=== PATIENT | female | born 2000 | race Caucasian/White ===

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

== ENCOUNTER 2022-05-02 18:51 | Emergency (ER) | payer MEDICAID, SELFPAY ==
[2022-05-02 18:52] VITALS: BP 113/67; PULSE 84; RESP 16; TEMP 36.2; O2SAT 100; BMI 19.9
--- NOTE | 2022-05-02 20:32 | RAD_ITS ---
STUDY: X-RAY - RIGHT KNEE REASON FOR EXAM: Female, 22 years old. pain TECHNIQUE: 4 view(s) of the knee. COMPARISON: 03/30/2021 FINDINGS: Normal visualized distal femur. Normal visualized proximal tibia and fibula. Normal proximal tibiofibular articulation. Normal medial femorotibial compartment. Normal lateral femorotibial compartment. Normal patellofemoral articulation. The soft tissue structures are unremarkable. RAD/Knee 4 or More Views IMPRESSION: Normal x-ray examination of the knee. Electronically Signed: Chaparro Boles MD at 21:03 EST ,
--- NOTE | 2022-05-02 20:45 | EDS_ITS ---
HPI History of Present Illness Chief Complaint: Lower Extremity Injury Narrative Narrative: Patient presents with right knee pain after twisting it a week ago. She is able to ambulate but has some lower medial pain. No effusion. No other injuries. [facility] Medical History Breathing problem Home Medications NK 12/26/21 [History Last Taken Unknown] Allergy/AdvReac Type Severity Reaction Status Date / Time No Known Allergies Allergy Verified 05/02/22 18:53 Social History Smoking Status: Current every day smoker tobacco type: e-cigarettes ROS ROS ED ROS Narrative Past medical history: none Medications: Reviewed Social history: Noncontributory Review of systems: Musculoskeletal: Right knee pain Skin: No abrasions or lacerations Neurological: No weakness or paresthesias Hematologic: No easy bleeding or easy bruising EXAM Physical Exam Narrative Exam Narrative: Physical exam General: Patient does not appear in significant distress . Head: Normocephalic, Atraumatic Neck: No C-spine tenderness Cardiovascular: Normal distal pulses Back: Nontender, Normal Inspection. Extremities: Right knee has tenderness over the medial lower part of the knee. No effusion. No erythema or calor. No laxity on anterior posterior medial or lateral stressors. She has a normal extensor mechanism. She is able to ambulate with minimal gait abnormalities. Skin: No abrasions, no lacerations Neurological: Normal strength and sensation Const Vital Signs: 05/02/22 18:52 Temperature 97.1 F L Temperature Source Temporal Pulse Rate 84 Respiratory Rate 16 Blood Pressure 113/67 Blood Pressure Mean 82 Pulse Ox 100 Oxygen Delivery Method Room Air MDM MDM MDM Narrative Medical decision making narrative: Patient has a knee strain, she has abnormal x-ray as interpreted by me. I talked to her, at this time she does not meet criteria for any further imaging. She may need physical therapy I talked to her about talking to her PCP about this. I thought about prescribing Naprosyn but she can take [id number] Motrin. She does not need any bracing at this time. Radiography Diagnostic Testing: Right knee x-ray interpreted by me as normal Discharge Plan Triage Chief Complaint: Lower Extremity Injury ED Provider: Ponce Jacobo Dx/Rx/DC Orders Clinical Impression: Strain of right knee, Pain in right knee Instructions: How Your Knee Works, Treating?Strains and Sprains Prescriptions: No Action NK Primary Care Provider: Roger Cordero Referrals: Roger Cordero DO [Primary Care Provider] - 3-5 Days Disposition Disposition: Home, Self Care
[2022-05-02 21:00] VITALS: BP 116/65; PULSE 64; RESP 18; O2SAT 100
== END 2022-05-02 21:22 | disposition home or self-care (01) ==
LOC: ED 20:54
PROVIDERS: Emergency Provider Emergency Medicine; PCP Student in an Organized Health Care Education/Training Program; Visit Provider Emergency Medicine
DX: S83.91XA Sprain of unspecified site of right knee, initial encounter (principal); F17.290 Nicotine dependence, other tobacco product, uncomplicated; X50.1XXA Overexertion from prolonged static or awkward postures, initial encounter
CPT/HCPCS: 73564; 99282

== ENCOUNTER 2024-11-22 15:24 | Emergency (ER) | payer MEDICAID, SELFPAY ==
[2024-11-22 15:25] VITALS: BP 103/66; PULSE 83; RESP 15; TEMP 36.4; O2SAT 100
[2024-11-22 18:10] VITALS: BP 111/78; PULSE 74; RESP 16; O2SAT 97
--- NOTE | 2024-11-22 18:11 | EX.ED.GENINJ ---
HPI History of Present Illness Chief Complaint: Nausea/Vomiting Informant: patient Narrative Narrative: Patient is G2, P1 currently +10 weeks (follows with [facility] [employer] SUPPORT TECHNICIAN, Sarah Hawley). She is presenting with nausea and vomiting. She states she has had nausea since she found out she was however over the past 2 to 3 days has been worsening. She states she is vomiting at random times. She has prescription for Phenergan, B6 and doxylamine but is not helping. She states she sometimes has upper abdominal pain when she vomits and right afterwards but otherwise does not have pain. She denies any change in her bowel movements. She notes that today she was feeling more weak, her feet felt like they went and her skin seem to be discolored. She came in for further evaluation. She notes she has been drinking okay but she is unable to eat much food or anything that solid because and she throws up. She denies any fever or chills. She does feel lightheaded. She denies any vaginal bleeding or leakage of fluids. She has had an ultrasound through her DESKTOP SUPPORT TECHNICIAN confirming intrauterine gestation. No other complaints or concerns reported at this time. States that she was previously diagnosed with a blood sac on her liver and is worried that this could have a complication that is affecting her is affecting it. Chart review shows that she has been diagnosed with a hemangioma of her liver. [facility] Medical History Chronic anemia Concussion Anxiety Abdominal pain Liver mass Breathing problem Home Medications ?Medication ?Instructions ?Recorded ?Last Taken ?Type albuterol sulfate 90 mcg/actuation 1 inh inhalation ONCE 06/18/24 11/22/24 History aerosol inhaler ascorbic acid (vitamin C) 500 mg mg PO 06/18/24 11/22/24 History capsule ferrous sulfate 325 mg (65 mg 325 mg PO QDAY 06/18/24 11/22/24 History iron) tablet doxylamine succinate 25 mg tablet 25 mg PO QHS nausea 11/22/24 11/21/24 History (Nighttime Sleep-Aid (doxylamine)) promethazine 12.5 mg tablet 12.5 mg PO Q4H PRN PRN 11/22/24 11/22/24 History nausea/vomiting pyridoxine (vitamin B6) 50 mg 25 mg PO BID 11/22/24 11/22/24 History tablet Allergy/AdvReac Type Severity Reaction Status Date / Time No Known Allergies Allergy Verified 11/22/24 16:27 Family History Father Alcohol abuse Asthma Brother Alcohol abuse Mother Breast cancer Social History Smoking Status: Current every day smoker tobacco type: e-cigarettes alcohol intake: never substance use type: does not use ROS ROS ED Constitutional Constitutional ED: Denies chills or fever(s) Cardiovascular Cardiovascular: Denies chest pain Respiratory/Chest Respiratory/Chest: Denies cough Gastrointestinal Gastrointestinal: Reports nausea and vomiting; Denies abdominal pain or melena Genitourinary Genitourinary ED: Reports other Details: States about 10 weeks ; Denies dysuria or hematuria Musculoskeletal Musculoskeletal: Denies arthralgias or myalgias Hematologic/Lymphatic Hematologic/Lymphatic: Denies easy bleeding or easy bruising EXAM Physical Exam Const Vital Signs: 11/22/24 15:25 11/22/24 18:10 11/22/24 20:00 Temperature 97.5 F L Temperature Source Oral Pulse Rate 83 74 84 Respiratory Rate 15 16 14 Blood Pressure 103/66 111/78 115/75 Blood Pressure Mean 78 89 88 Pulse Ox 100 97 100 Oxygen Delivery Method Room Air Room Air Room Air 11/22/24 21:20 Temperature 97.8 F Temperature Source Pulse Rate 75 Respiratory Rate 16 Blood Pressure 118/62 Blood Pressure Mean 80 Pulse Ox 100 Oxygen Delivery Method Positive well nourished and well developed General Appearance ED: well developed and NAD HEENT HEENT Narrative: Moist mucosal membranes Neck Neck Narrative: Supple Chest Wall inspection of chest normal Resp normal respiratory effort and clear to auscultation bilaterally Cardio regular rhythm and no murmurs Rate: regular rate GI normal to inspection, nondistended, normoactive bowel sounds and non-tender GI Narrative: No palpable fundus Extremity normal to inspection and full ROM Neuro oriented x3 and moves all extremities Sensorium / Orientation: alert Psych mental status grossly normal and thought process normal Skin no rashes or lesions noted Skin Narrative: No pallor MDM MDM MDM Narrative Medical decision making narrative: Patient evaluated for worsening vomiting and for trimester . Has already had confirming IUP. States is not really been able to eat much but is still able to drink. Vital signs are normal. She is overall well-appearing. She reports history of liver abnormality and is concerned about her liver so we will check some basic labs including CBC, lipase and CMP as well as urinalysis to ensure he does not have a secondary UTI that could be causing her increased vomiting. Patient is given IV fluids. She currently is not nauseous so she is not giving Zofran. Initially she has significant laboratory abnormalities including worsening anemia. She does not look like she is acutely anemic on exam. Did speak to her DESKTOP SUPPORT TECHNICIAN and follow-up recent labs that show her hemoglobin is 11.5 last month on Clinisync. Spoke to her DESKTOP SUPPORT TECHNICIAN call, Dr. Guzman who does not personally familiar with her. He recommends if she is truly anemic for blood transfusion and then outpatient follow-up as it is Monday and they cannot arrange outpatient iron transfusions over the weekend/urgently. Thankfully, it was some type of lab error and labs are rechecked and more normal. Her hemoglobin is actually 9.4 with no leukocytosis. Urinalysis is consistent with contamination. Lipase and CMP normal. Patient reevaluated. She is stable. She has not had any vomiting in the emergency room. Counseled that she should be taking her doxylamine and B6 together instead of separately which is probably why is not helping. In addition she can increase her promethazine or take all 3 together. At this time she would like to try these medications as recommended and does not feel that she needs prescription for Zofran or other nausea medicine. Is offered Phenergan suppository but also declines that. Given return precautions. Encouraged follow-up with her DESKTOP SUPPORT TECHNICIAN. Discharged home in stable condition. Lab Data Attestation: I reviewed the patient's lab results. Labs: Laboratory Results - last 24 hr 11/22/24 11/22/24 11/22/24 18:24 18:38 18:38 WBC Cancelled Corrected WBC Cancelled RBC Cancelled Hgb Cancelled Hct Cancelled MCV Cancelled MCH Cancelled MCHC Cancelled RDW Std Deviation Cancelled RDW Coeff of Berk[place] Cancelled Plt Count Cancelled MPV Cancelled Immature Gran % (Auto) Cancelled Neut % (Auto) Cancelled Lymph % (Auto) Cancelled [place] % (Auto) Cancelled Eos % (Auto) Cancelled Baso % (Auto) Cancelled Absolute Neuts (auto) Cancelled Absolute Lymphs (auto) Cancelled Total Counted Cancelled Neutrophils % (Manual) Cancelled Band Neutrophils % Cancelled Lymphocytes % (Manual) Cancelled Monocytes % (Manual) Cancelled Eosinophils % (Manual) Cancelled Basophils % (Manual) Cancelled Metamyelocytes % Cancelled Myelocytes % Cancelled Promyelocytes % Cancelled Blast Cells % Cancelled Plasma Cell % (Manual) Cancelled Other Cells % Cancelled Nucleated RBC % Cancelled Nucleated RBCs/100 WBC Cancelled Differential Comment Cancelled Diff Path Review Cancelled Hypersegmented Neuts Cancelled Atypical Lymphocytes Cancelled Reactive Lymphocytes Cancelled Smudge Cells Cancelled Toxic Granulation Cancelled Toxic Vacuolation Cancelled Dohle Bodies Cancelled [place]s Cancelled Platelet Estimate Cancelled Plt Morphology Comment Cancelled RBC Morphology Cancelled Cancelled Polychromasia Cancelled Hypochromasia Cancelled Basophilic Stippling Cancelled Anisocytosis Cancelled Microcytosis Cancelled Macrocytosis Cancelled Spherocytes Cancelled Sickle Cells Cancelled Target Cells Cancelled Tear Drop Cells Cancelled Ovalocytes Cancelled Stomatocytes Cancelled [place] Bodies Cancelled [place] Cells Cancelled Bite Cells Cancelled Crenated Cell Cancelled Acanthocytes (Spur) Cancelled Rouleaux Cancelled Schistocytes Cancelled Sodium Cancelled Potassium Cancelled Chloride Cancelled Carbon Dioxide Cancelled Anion Gap Cancelled BUN Cancelled Creatinine Cancelled Estim Creat Clear Calc Cancelled Est GFR (MDRD) Non-Af Cancelled BUN/Creatinine Ratio Cancelled Glucose Cancelled Calcium Cancelled Total Bilirubin Cancelled AST Cancelled ALT Cancelled Alkaline Phosphatase Cancelled Total Protein Cancelled Albumin Cancelled Globulin Cancelled Albumin/Globulin Ratio Cancelled Lipase Cancelled Urine Color Yellow Urine Clarity Cloudy Urine pH 8.0 Ur Specific [place] 1.015 Urine Protein 30 H Urine Glucose (UA) Normal Urine Ketones Negative Urine Occult Blood Negative Urine Nitrite Negative Urine Bilirubin Negative Urine Urobilinogen Normal Ur Leukocyte Esterase 25 H Urine RBC 0-5 SEEN Urine WBC 5-10 SEEN Ur Squamous Epith Cells 0-5 SEEN Ur Transition Epith Cell 0-5 SEEN Amorphous Sediment 3+ Urine Bacteria 2+ Urine Mucus 0 SEEN 11/22/24 19:40 WBC 7.7 Corrected WBC RBC 3.90 L Hgb 9.4 L Hct 29.8 L MCV 76.4 L MCH 24.1 L MCHC 31.5 L RDW Std Deviation 43.8 RDW Coeff of Berkley 15.9 H Plt Count 209 MPV 10.9 Immature Gran % (Auto) Neut % (Auto) Lymph % (Auto) [place] % (Auto) Eos % (Auto) Baso % (Auto) Absolute Neuts (auto) Absolute Lymphs (auto) Total Counted Neutrophils % (Manual) Band Neutrophils % Lymphocytes % (Manual) Monocytes % (Manual) Eosinophils % (Manual) Basophils % (Manual) Metamyelocytes % Myelocytes % Promyelocytes % Blast Cells % Plasma Cell % (Manual) Other Cells % Nucleated RBC % Nucleated RBCs/100 WBC Differential Comment Diff Path Review Hypersegmented Neuts Atypical Lymphocytes Reactive Lymphocytes Smudge Cells Toxic Granulation Toxic Vacuolation Dohle Bodies [place] Platelet Estimate Plt Morphology Comment RBC Morphology Polychromasia Hypochromasia Basophilic Stippling Anisocytosis Microcytosis Macrocytosis Spherocytes Sickle Cells Target Cells Tear Drop Cells Ovalocytes Stomatocytes [place] Bodies [place] Cells Bite Cells Crenated Cell Acanthocytes (Spur) Rouleaux Schistocytes Sodium 137 Potassium 3.7 Chloride 108 Carbon Dioxide 20.4 L Anion Gap 9 BUN 7 Creatinine 0.51 L Estim Creat Clear Calc 144.34 Est GFR (MDRD) Non-Af 135 BUN/Creatinine Ratio 13.4 Glucose 77 Calcium 8.2 Total Bilirubin 0.20 AST 22 ALT 28 Alkaline Phosphatase 39 Total Protein 6.3 Albumin 3.5 Globulin 2.8 Albumin/Globulin Ratio 1.3 Lipase 27 Urine Color Urine Clarity Urine pH Ur Specific [place] Urine Protein Urine Glucose (UA) Urine Ketones Urine Occult Blood Urine Nitrite Urine Bilirubin Urine Urobilinogen Ur Leukocyte Esterase Urine RBC Urine WBC Ur Squamous Epith Cells Ur Transition Epith Cell Amorphous Sediment Urine Bacteria Urine Mucus Management Discussion w/another healthcare provider: Skein Yarn Dyer Discharge Plan Triage Chief Complaint: Nausea/Vomiting ED Provider: Yanni Blanco Dx/Rx/DC Orders Clinical Impression: Iron deficiency anemia, Nausea and vomiting, Instructions: ED Hyperemesis Gravidarum Prescriptions: No Action albuterol sulfate 90 mcg/actuation HFA aerosol inhaler 1 inh inhalation ONCE ferrous sulfate 325 mg (65 mg iron) tablet 325 mg PO QDAY ascorbic acid (vitamin C) 500 mg capsule PO promethazine 12.5 mg tablet 12.5 mg PO Q4H PRN PRN (Reason: nausea/vomiting) pyridoxine (vitamin B6) 50 mg tablet 25 mg PO BID Nighttime Sleep-Aid (doxylamn) 25 mg tablet 25 mg PO QHS Primary Care Provider: Roger Cordero Referrals: Roger Cordero DO [Primary Care Provider] - Sarah Hawley MD [Non-Staff] - Activity Restrictions/Additional Instructions: Remember that you should take your doxylamine and B6 prescriptions together for maximum nausea relief. You may also take the Phenergan at the same time and take up to 25 mg at a time (2 pills). This may increase sleepiness however. Follow-up with your DESKTOP SUPPORT TECHNICIAN. Try to eat small frequent meals. If you can I do recommend resuming your iron tablets and take them twice a day for your anemia Print Language: Micronesian Disposition Disposition: Home, Self Care Discharge Date/Time: 11/22/24 21:21
[2024-11-22] MEDS: 0.9% Normal Saline (1000mL) 1,000 ML 999 ML IV (18:26)
[2024-11-22 18:40] LABS: Mucous, Urine 0 SEEN /hpf (<or=2+)
[2024-11-22 19:28] LABS: Color, Urine Yellow (Yellow); Glucose, Dipstick Normal (Normal); Ketone-Dipstick Negative (Negative); Leukocyte Esterase-Dipstick 25 /ul (Negative); Nitrite-Dipstick Negative (Negative); Occult Blood-Urine Negative /ul (Negative); Protein-Dipstick 30 mg/dl (Negative); Specific Gravity, Urine 1.015 (1.002-1.030); Urine Bilirubin Dipstick Negative (Negative)
[2024-11-22 20:00] VITALS: BP 115/75; PULSE 84; RESP 14; O2SAT 100
[2024-11-22 20:10] LABS: Lipase 27 U/L (13-75)
[2024-11-22 20:12] LABS: AST(SGOT) 22 U/L (<=31); Alanine Aminotransfer ALT/SGPT 28 U/L (<=34); Albumin, Serum 3.5 g/dL (3.5-5.0); Alkaline Phosphatase 39 U/L (35-104); Anion Gap 9 (5-15); BUN 7 mg/dL (4-19); BUN/Creat Ratio 13.4 RATIO (10-20); Calcium,Total 8.2 mg/dL (7.6-11.0); Carbon Dioxide 20.4 mmol/L (21.0-32.0); Chloride 108 mmol/L (98-108); Estimated Creatinine Clearance 144.34 ml/min (50-250); Globulin 2.8 g/dL (2.2-4.2); Glucose 77 mg/dL (70-99); Potassium 3.7 mmol/L (3.3-5.1)
[2024-11-22 20:18] LABS: Hematocrit 29.8 % (37-47); Hemoglobin 9.4 g/dL (12.0-15.0); Mean Corp Hgb Conc 31.5 g/dL (32-36); Mean Corpuscular Volume 76.4 fL (81-99); Mean Platelet Vol. 10.9 fl (6.2-12.0); Platelet Count 209 K/mm3 (150-450); RBC Distribution Width CV 15.9 % (11.6-14.6); RBC Distribution Width SD 43.8 fl (35.1-43.9); Red Blood Count 3.90 M/mm3 (4.2-5.4); White Blood Count 7.7 K/mm3 (4.4-11.0)
[2024-11-22 21:04] LABS: Red Blood Cells-Urine 0-5 SEEN /hpf (0-5)
[2024-11-22 21:05] LABS: Squamous Epithelial Cells - UA 0-5 SEEN /hpf (5-10)
[2024-11-22 21:06] LABS: Transitional Epithelial - Ur 0-5 SEEN /hpf (0-5)
[2024-11-22 21:20] VITALS: BP 118/62; PULSE 75; RESP 16; TEMP 36.6; O2SAT 100
== END 2024-11-22 21:21 | disposition home or self-care (01) ==
PROVIDERS: Emergency Provider Emergency Medicine; PCP Student in an Organized Health Care Education/Training Program; Visit Provider Emergency Medicine
DX: O21.9 Vomiting of pregnancy, unspecified (principal); Z3A.10 10 weeks gestation of pregnancy; O99.011 Anemia complicating pregnancy, first trimester; D50.9 Iron deficiency anemia, unspecified; F17.290 Nicotine dependence, other tobacco product, uncomplicated; O99.331 Smoking (tobacco) complicating pregnancy, first trimester
CPT/HCPCS: 80053; 81001; 83690; 85027; 96360; 96361; 99284; A4216